=== PATIENT | female | born 1950 | race Caucasian/White ===

== ENCOUNTER → 2020-05-25 | Outpatient (CLI) | payer MEDICARE ==
--- NOTE | 2020-05-25 20:24 | CT ---
EXAMINATION TYPE: CT brain w con DATE OF EXAM: 05/25/2020 COMPARISON: None HISTORY: Vascular dementia w/o behavior disturbance. Pt c/o memory issues CT DLP: 1150.5 mGycm Automated exposure control for dose reduction was used. CONTRAST: CT scan of the head is performed with IV Contrast, patient injected with 80 mL of Isovue 300. FINDINGS: There is no abnormal enhancing mass or midline shift identified. Moderate diffuse volume loss. 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 Patchy white matter hypodensities likely sequela of chronic micro vascular ischemic change. The ventricles and sulci are within normal limits in size. The globes are grossly symmetric. The mastoid air cells are clear. The visualized sinuses are clear. IMPRESSION: 1. Moderate diffuse volume loss. Patchy white matter hypodensities likely sequela of chronic microvas cular ischemic change. 2. No enhancing mass or midline shift.
== END | disposition home or self-care (01) ==
LOC: RADCTMAIN 14:27
PROVIDERS: ATTEND Internal Medicine
DX: G93.89 Other specified disorders of brain (principal); R90.89 Other abnormal findings on diagnostic imaging of central nervous system; F01.50 Vascular dementia, unspecified severity, without behavioral disturbance, psychotic disturbance, mood disturbance, and anxiety
CPT/HCPCS: 82565; 84520; 70460; 36415; Q9967

== ENCOUNTER → 2020-06-15 | Outpatient (CLI) | payer MEDICARE ==
--- NOTE | 2020-06-15 15:53 | US ---
EXAMINATION TYPE: US kidneys/renal and bladder DATE OF EXAM: 06/15/2020 COMPARISON: NONE CLINICAL HISTORY: R94.4 ABN RENAL FUNCTION TEST. EXAM MEASUREMENTS: Right Kidney: 7.8 x 3.9 x 4.1 cm Left Kidney: 8.2 x 4.2 x 4.4 cm Right Kidney: small in size, no hydronephrosis or masses seen Left Kidney: small in size, no hydronephrosis or masses seen Bladder: wnl Bilateral Jets seen: yes Increased echogenicity of the kidneys bilaterally. IMPRESSION: No hydronephrosis or nephrolithiasis. Kidneys somewhat diminutive in size with increased cortical ech ogenicity which could be associated with chronic medical renal disease
== END | disposition home or self-care (01) ==
LOC: RADUSWWP 06-03 14:53
PROVIDERS: ATTEND Internal Medicine
DX: R93.421 Abnormal radiologic findings on diagnostic imaging of right kidney (principal); R93.422 Abnormal radiologic findings on diagnostic imaging of left kidney; R94.4 Abnormal results of kidney function studies
CPT/HCPCS: 76770

== ENCOUNTER 2021-07-17 21:57 | Emergency (ER) | payer MEDICARE ==
[2021-07-17 22:04] VITALS: BP 159/81; PULSE 72; RESP 18; TEMP 98
--- NOTE | 2021-07-17 22:26 | ED ---
Fall HPI - General Chief Complaint: Fall Stated Complaint: Fall about 8 steps, no thinners Time Seen by Provider: 07/17/21 22:07 Source: patient, RN notes reviewed, old records reviewed Mode of arrival: wheelchair - History of Present Illness Initial Comments: This is a 71-year-old female to the emergency department for evaluation, fall while walking on the stairs she believes she fell about 8 steps. Patient is amateur after the fall. Severe right wrist pain with deformity. No other injuries noted. 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 Fall Witnessed: yes, by family Place Fall Occurred: home Loss of Consciousness: none Prolonged Down Time?: no Symptoms Prior to Fall: none Location - Extremities: Right: Forearm, Hand Severity: severe Severity scale (1-10): 8 Quality: sharp Context: tripped/slipped Associated Symptoms: denies - Related Data Home Medications Medication Instructions Recorded Confirmed Atorvastatin Calcium [Lipitor] 20 mg PO DAILY 07/17/21 07/17/21 Donepezil HCl [Aricept] 10 mg PO DAILY 07/17/21 07/17/21 Allergies Allergy/AdvReac Type Severity Reaction Status Date / Time No Known Allergies Allergy Verified 07/17/21 23:18 Review of Systems ROS Statement: Those systems with pertinent positive or pertinent negative responses have been documented in the HPI. ROS Other: All systems not noted in ROS Statement are negative. Past Medical History Past Medical History: Diabetes Mellitus History of Any Multi-Drug Resistant Organisms: None Reported Past Surgical History: Cholecystectomy Past Psychological History: No Psychological Hx Reported Smoking Status: Never smoker Past Alcohol Use History: None Reported Past Drug Use History: None Reported General Exam General appearance: alert, in no apparent distress Head exam: Present: atraumatic, normocephalic, normal inspection Eye exam: Present: normal appearance, PERRL, EOMI. Absent: scleral icterus, conjunctival injection, periorbital swelling ENT exam: Present: normal exam, mucous membranes moist Neck exam: Present: normal inspection. Absent: tenderness, meningismus, lymphadenopathy Respiratory exam: Present: normal lung sounds bilaterally. Absent: respiratory distress, wheezes, rales, rhonchi, stridor Cardiovascular Exam: Present: regular rate, normal rhythm, normal heart sounds. Absent: systolic murmur, diastolic murmur, rubs, gallop, clicks GI/Abdominal exam: Present: soft, normal bowel sounds. Absent: distended, tenderness, guarding, rebound, rigid Extremities exam: Present: normal inspection, full ROM, normal capillary refill, other (Right wrist swelling and pain). Absent: tenderness, pedal edema, joint swelling, calf tenderness Back exam: Present: normal inspection Neurological exam: Present: alert, oriented X3, CN II-XII intact Psychiatric exam: Present: normal affect, normal mood Skin exam: Present: warm, dry, intact, normal color. Absent: rash Course Vital Signs 07/17/21 22:00 Temperature 98.0 F Pulse Rate 72 Respiratory 18 Rate Blood Pressure 159/81 O2 Sat by Pulse 99 Oximetry - Reevaluation(s) Reevaluation #1: Medical record is reviewed Patient symptoms are significantly improved here in the emergency department Patient informed results and questions answered Procedures - Orthopedic Fracture Reduction Fracture #1 Consent Obtained: verbal consent Side: right Fracture Reduction Location: radius, ulna Analgesia: hematoma block Technique: direct manipulation, traction/counter-traction Post Reduction X-rays Demonstrate: anatomical reduction Post-Reduction Neuro Exam: intact Post-Reduction Vascular Exam: intact Splint Applied: Yes Patient Tolerated Procedure: well Medical Decision Making - Medical Decision Making 71 female to the ER for evaluation patient presents today status post fall. This is reduced here in the ER without complication. Patient can be discharged home - Radiology Data Radiology results: report reviewed (CT brain C-spine chest x-ray are negative for traumatic injury X-ray right wrist and post reduction x-ray right wrist s hows improvement), image reviewed Disposition Clinical Impression: Fall, Fracture of right distal radius Disposition: HOME SELF-CARE Condition: Good Instructions (If sedation given, give patient instructions): Wrist Fracture in Adults (ED) Is patient prescribed a controlled substance at d/c from ED?: No Referrals: Shahid Ramos MD [Primary Care Provider] - 1-2 days Emelyn Sanchez DO [Doctor of Osteopathic Medicine] - 1-2 days
[2021-07-17] MEDS ORDERED: LIDOCAINE 1% INJ 10MG/ML (20 ML MDV) SQ ONE (22:38)
--- NOTE | 2021-07-17 23:01 | XR ---
EXAMINATION TYPE: XR wrist complete RT DATE OF EXAM: 07/17/2021 COMPARISON: NONE HISTORY: Fall. Pain TECHNIQUE: 4 views FINDINGS: There is impacted transverse acute fracture of the distal radial metaphysis. This is 1 cm f rom the wrist joint. There is no dislocation. Carpal bones are intact. Metacarpals are intact. There is 5 mm posterior displacement of the distal radius fragment on the lateral view. There is probably u lnar styloid process nondisplaced fracture. IMPRESSION: Impacted and displaced fracture distal radius. No dislocation.
--- NOTE | 2021-07-17 23:03 | XR ---
EXAMINATION TYPE: XR chest 1V DATE OF EXAM: 07/17/2021 COMPARISON: NONE HISTORY: Fall. Pain TECHNIQUE: Single view FINDINGS: Heart and mediastinum are normal. Lungs are clear. Diaphragm is normal. Bony thorax is inta ct. There is some pleural thickening at the lung apices. IMPRESSION: Mild apical pleural and pulmonary scarring. No definite acute lung disease. Normal heart.
--- NOTE | 2021-07-17 23:08 | CT ---
EXAMINATION TYPE: CT brain juan carlos sihrley con DATE OF EXAM: 07/17/2021 COMPARISON: 05/25/2020 CT brain HISTORY: Fall CT DLP: 1240.9 mGycm Automated exposure control for dose reduction was used. There is cerebral atrophy. There is no mass effect nor midline shift. There is no sign of intracrania l hemorrhage. Calvarium is intact. The skull base is intact. There is normal aeration of the mastoid sinuses. Cervical vertebra have normal alignment. Disc spaces are fairly normal. There is some mild degenerati ve disc space narrowing at C5-6. Facet joints are intact. Prevertebral soft tissues are intact sella turcica appears normal. IMPRESSION: Mild cerebral atrophy. No acute intracranial abnormality. Mild degenerative disc changes at C5-6. No fracture. Brain unchanged compared to old exam.
--- NOTE | 2021-07-17 23:31 | XR ---
EXAMINATION TYPE: XR wrist limited RT DATE OF EXAM: 07/17/2021 COMPARISON: 07/17/2021 HISTORY: Post reduction TECHNIQUE: 2 views FINDINGS: There is good anatomic reduction of the fracture distal radius. There is good apposition an d alignment of the fragments. Carpal bones are intact. Metacarpals are intact. IMPRESSION: Good anatomic reduction of the radius fracture.
== END 2021-07-18 00:01 | disposition home or self-care (01) ==
LOC: EC 21:57
DX: S52.501A Unspecified fracture of the lower end of right radius, initial encounter for closed fracture (principal); E11.9 Type 2 diabetes mellitus without complications; Z79.899 Other long term (current) drug therapy; W10.8XXA Fall (on) (from) other stairs and steps, initial encounter; Y92.009 Unspecified place in unspecified non-institutional (private) residence as the place of occurrence of the external cause
CPT/HCPCS: 73100; 73110; 71045; 72125; 70450; 25605; 99284; J2001

== ENCOUNTER → 2021-10-11 | Outpatient (CLI) | payer MEDICARE ==
[~2021-10-11] MED LIST: DOBUTamine DRIP for NUC MED 500 MG in DEXTROSE/WATER 1 250ML.BAG IV PRN
--- NOTE | 2021-10-11 09:15 | US ---
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 EXAM MEASUREMENTS: RIGHT: Peak Systolic Velocity (PSV) cm/sec ----- Right CCA: 76.4 ----- Right ICA: 133.2 ----- Right ECA: 91.0 ICA/CCA ratio: 1.7 RIGHT: End Diastole cm/sec ----- Right CCA: 24.1 ----- Right ICA: 28.8 ----- Right ECA: 14.0 LEFT: Peak Systolic Velocity (PSV) cm/sec ----- Left CCA: 85.2 ----- Left ICA: 99.7 ----- Left ECA: 98.3 ICA/CCA ratio: 1.2 LEFT: End Diastole cm/sec ----- Left CCA: 27.0 ----- Left ICA: 32.9 ----- Left ECA: 19.8 VERTEBRALS (direction of flow): Right Vertebral: Antegrade Left Vertebral: Antegrade Rhythm: Normal Right hypoechoic thyroid nodule seen, measuring 1.5 x 1.3 x 1.3cm Mild atherosclerotic IMPRESSION: No evidence for hemodynamically significant stenosis. Criteria for Assigning % of Stenosis / Diameter reduction (Estimation based on the indirect measurements of the internal carotid artery velocities (ICA PSV). 1. Normal (no stenosis)=ICA PSV < 125 cm/s: ratio < 2.0: ICA EDV<40 cm/s. 2. Less than 50% stenosis=ICA PSV < 125 cm/s: ratio < 2.0: ICA EDV<40 cm/s. 3. 50 to 69% stenosis=ICA PSV of 125 to 230 cm/s: ration 2.0 ? 4.0: ICA EDV 40-100 cm/s. 4. Greater than 70% stenosis to near occlusion= ICA PSV > 230 cm/s: ratio > 4.0: ICA EDV > 100 cm/s. 5. Near occlusion= ICA PSV velocities may be low or undetectable: variable ratio and ICA EDV. 6. Total occlusion=unable to detect flow.
== END | disposition home or self-care (01) ==
LOC: RADUSWWP 08:27
PROVIDERS: ATTEND Internal Medicine
DX: I21.19 ST elevation (STEMI) myocardial infarction involving other coronary artery of inferior wall (principal)
CPT/HCPCS: 93880

== ENCOUNTER → 2021-12-06 | Outpatient (CLI) | payer MEDICARE ==
--- NOTE | 2021-12-06 11:06 | BD ---
EXAMINATION TYPE: Axial Bone Density DATE OF EXAM: 12/06/2021 COMPARISON: NONE CLINICAL HISTORY: 71 years year old Female. ICD-10 CODE: Z13.820 OSTEOPOROSIS Height: 63in Weight: 142 FRAX RISK QUESTIONS: Secondary Osteoporosis: 3. Menopause before 45: 56 RISK FACTORS HISTORY OF: Active: YES Diet low in dairy products/other sources of calcium: YES Postmenopausal woman: 56 MEDICATIONS: EXAM MEASUREMENTS: Bone mineral densitometry was performed using the [employer]. Bone mineral density as measured about the Lumbar spine is: ----- L1-L4(G/cm2): 0.735 T Score Values are as follows: ----- L1: -3.2 ----- L2: -4.0 ----- L3: -4.1 ----- L4: -3.7 ----- L1-L4: -3.7 Bone mineral density BASELINE Bone mineral density about the R hip (g/cm2): 0.656 Bone mineral density about the L hip (g/cm2): 0.674 T Score values are as follows: -----R Neck: -2.7 -----L Neck: -2.6 -----R Total: -3.0 -----L Total: -2.8 Bone mineral density BASELINE FRAX%s: The graph provided illustrates a 17.2% chance for a major osteoporotic fx and a 5.2% chance f or the hips probability for fx in 10 years time. IMPRESSION: Osteoporosis (T Score less than -2.5). There is increased fracture risk and therapy is usually indicated based on age. Re-Screen 1-2 years. NOTE: T-SCORE=SD OF THE YOUNG ADULT MEAN.
--- NOTE | 2021-12-07 11:12 | MM ---
Reason for exam: screening (asymptomatic). Last mammogram was performed 16 years ago. History: Patient is postmenopausal. Took estrogen for 1 year. Took progesterone for 1 year. Physical Findings: A clinical breast exam by your physician is recommended on an annual basis and results should be correlated with mammographic findings. MG 3D Screening Mammo W/Cad Bilateral CC and MLO view(s) were taken. Prior study comparison: December 09, 2005, bilateral screening mammogram w/CAD. The breast tissue is heterogeneously dense. This may lower the sensitivity of mammography. Benign appearing calcifications in the right breast. There are indeterminate calcifications in the left upper quadrant. ASSESSMENT: Incomplete: need additional imaging evaluation, BI-RAD 0 RECOMMENDATION: Special view mammogram of the left breast. [facility] will attempt to contact patient to return for supplemental views.
== END | disposition home or self-care (01) ==
LOC: RADMAMWWP 08:15
PROVIDERS: ATTEND Internal Medicine
DX: Z12.31 Encounter for screening mammogram for malignant neoplasm of breast (principal); M81.0 Age-related osteoporosis without current pathological fracture; Z78.0 Asymptomatic menopausal state
CPT/HCPCS: 77063; 77067; 77080

== ENCOUNTER → 2021-12-09 | Outpatient (CLI) | payer MEDICARE ==
--- NOTE | 2021-12-09 09:35 | MM ---
Reason for exam: additional evaluation requested from abnormal screening. Last mammogram was performed less than 1 month ago. History: Patient is postmenopausal. Took estrogen for 1 year. Took progesterone for 1 year. Physical Findings: A clinical breast exam by your physician is recommended on an annual basis and results should be correlated with mammographic findings. MG 3D Work Up W/Cad LT LM with magnification and LM view(s) were taken of the left breast. Prior study comparison: December 06, 2021, bilateral MG 3d screening mammo w/cad. December 09, 2005, bilateral screening mammogram w/CAD. The breast tissue is heterogeneously dense. This may lower the sensitivity of mammography. Questioned superior calcifications area not well demonstrated on magnification views, possible faint vascular calcifications. 6 month follow up. Results were given to the patient verbally at the time of the exam. ASSESSMENT: Probably benign, BI-RAD 3 RECOMMENDATION: Follow-up diagnostic mammogram of the left breast in 6 months.
== END | disposition home or self-care (01) ==
LOC: RADMAMWWP 08:43
PROVIDERS: ATTEND Internal Medicine
DX: R92.8 Other abnormal and inconclusive findings on diagnostic imaging of breast (principal); Z78.0 Asymptomatic menopausal state
CPT/HCPCS: 77065; G0279; 77061

== ENCOUNTER 2021-12-30 09:56 | Day surgery (SDC) | payer MEDICARE ==
[2021-12-29 10:38] VITALS: BMI 21.6
[~2021-12-30 09:56] MED LIST changes: -DOBUTamine DRIP for NUC MED 500 MG in DEXTROSE/WATER 1 250ML.BAG IV PRN; +LACTATED RINGERS 1,000 ML IV SCH
[2021-12-30 11:02] VITALS: TEMP 96.8
--- NOTE | 2021-12-30 11:59 | P.GSHP ---
History of Present Illness H&P Date: 12/30/21 Chief Complaint: Screening colonoscopy Is a 71-year-old female who presents today for screening colonoscopy. Patient denies a significant GI complaints Past Medical History Past Medical History: Dementia, Hyperlipidemia, Memory Impairment History of Any Multi-Drug Resistant Organisms: None Reported Past Surgical History: Cholecystectomy Past Anesthesia/Blood Transfusion Reactions: No Reported Reaction Smoking Status: Former smoker - Past Family History Mother Family Medical History: Cancer Medications and Allergies Home Medications Medication Instructions Recorded Confirmed Type Atorvastatin Calcium [Lipitor] 20 mg PO DAILY 07/17/21 12/30/21 History Donepezil HCl [Aricept] 10 mg PO DAILY 07/17/21 12/30/21 History Allergies Allergy/AdvReac Type Severity Reaction Status Date / Time No Known Allergies Allergy Verified 12/30/21 10:54 Surgical - Exam Vital Signs Temp Pulse Resp BP Pulse Ox 96.8 F L 87 18 199/97 97 12/30/21 11:00 12/30/21 11:00 12/30/21 11:00 12/30/21 11:00 12/30/21 11:00 - General well developed, well nourished, no distress - Eyes PERRL - ENT normal pinna - Neck no masses - Respiratory normal expansion - Cardiovascular Rhythm: regular - Abdomen Abdomen: soft, non tender Assessment and Plan Assessment: We will perform screening colonoscopy
[2021-12-30] MEDS ORDERED: PROPOFOL 10 MG/ML 20 ML VIAL IV ONE (12:02)
--- NOTE | 2021-12-30 12:17 | P.OP ---
Date of Procedure: 12/30/21 Preoperative Diagnosis: Screening colonoscopy Postoperative Diagnosis: Diverticulosis Procedure(s) Performed: Colonoscopy Anesthesia: MAC Surgeon: Eben Sharpe Pathology: none sent Condition: stable Disposition: PACU Description of Procedure: The patient's placed on the endoscopy table lateral position. He received IV sedation. Digital rectal exam was performed. Possible colonoscope was then placed patient anus passed rotator entire colon. Ileocecal valve was visualized. Cecum, ascending and transverse colon appeared normal. In the descending and sigmoid colon there is mild diverticular changes. Scope was then brought back the rectum and this appeared normal. Scope withdrawn for patient.
[2021-12-30 12:35] VITALS: BP 133/64; PULSE 65; RESP 18
== END 2021-12-30 13:40 | disposition home or self-care (01) ==
LOC: ORWHC2ENDO 09:56
PROVIDERS: ATTEND Surgery
DX: Z12.11 Encounter for screening for malignant neoplasm of colon (principal); K57.90 Diverticulosis of intestine, part unspecified, without perforation or abscess without bleeding; E78.5 Hyperlipidemia, unspecified; F03.90 Unspecified dementia, unspecified severity, without behavioral disturbance, psychotic disturbance, mood disturbance, and anxiety; Z87.891 Personal history of nicotine dependence; Z90.49 Acquired absence of other specified parts of digestive tract
CPT/HCPCS: 45378; J2704

== ENCOUNTER → 2022-03-08 | Outpatient (CLI) | payer MEDICARE ==
[~2022-03-08] MED LIST changes: -LACTATED RINGERS 1,000 ML IV SCH; +REGADENOSON 0.4 MG/5 ML SYRINGE IV ONE
--- NOTE | 2022-03-08 11:46 | CA ---
Lexiscan Nuclear Stress Test Report Name: Ingris Blackwood Exam Date: 03/08/2022 09:39 Exam Location: [facility] Stress Ht (in): 62 Wt (lb): 159 BSA: 1.73 Ordering Phys: Shahid Ramos MD Referring Phys: Shahid Ramos MD Technologist: Avtar Larios Age: 72 Gender: F : 1950 Procedure CPT: Indications: I21.19 Inferior myocardaial infarction ICD-10 Codes: Patient History: Question inferior wall PR Medications: Meds past 24 hrs: Pretest Chest Pain: STRESS TEST Lexiscan Protocol Exercise Duration (min:sec): 02:[address] Depressions (mm): Angina Score: Montano Score: Resting HR (bpm): 62 Peak HR (bpm): 94 Resting BP (mmHg): 150 / 90 Peak BP (mmHg): 160 / 88 MPHR: 149 Target HR: 127 % MPHR: 63 METS: 1.0 Total Dose: Peak Dose: Atropine: Double Product: 15135 BP Response: Stress Termination: Infusion complete Stress Symptoms: No chest pain or symptoms Stress Summary: ECG ANALYSIS Resting ECG: Normal sinus rhythm normal axis normal intervals Stress ECG: Non-diagnostic ST segment depression with Lexiscan infusion with frequent PVCs CONCLUSIONS Negative stress test by EKG criteria Cardiolite portion of the stress test will be reported separately Dr. Robert Belcher MD (Electronically Signed) Final Date: 08 March 2022 11:45
--- NOTE | 2022-03-08 11:51 | NM ---
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 The patient received 0.4mg Lexiscan, 25.2 mCi Tc 99m Sestamibi - Stress images obtained [address] injection FINDINGS: Review of stress and rest SPECT images demonstrates no distinct perfusion abnormality. Gated analysi s shows normal wall motion with an estimated left ventricular ejection fraction of 62 %. IMPRESSION: No scintigraphic evidence for reversible ischemia.
== END | disposition home or self-care (01) ==
LOC: RADNMMAIN 07:43
PROVIDERS: ATTEND Internal Medicine
DX: I21.19 ST elevation (STEMI) myocardial infarction involving other coronary artery of inferior wall (principal)
CPT/HCPCS: 93017; 78452; A9500

== ENCOUNTER → 2022-12-07 | Outpatient (CLI) | payer MEDICARE ==
--- NOTE | 2022-12-08 19:15 | MM ---
Reason for Exam: Screening (asymptomatic). Last screening mammogram was performed 12 month(s) ago. Patient History: Menarche at age 13. First Full-Term at age 18. Postmenopausal. Patient used Estrogen for 1 year. Patient used Progesterone for 1 year. Risk Values: Katelynn 5 year model risk: 1.3%. NCI Lifetime model risk: 3.5%. Prior Study Comparison: 12/09/2005 Bilateral Screening Mammogram, [facility]. 12/06/2021 Bilateral Screening Mammogram, [facility]. 12/09/2021 Left Diagnostic Mammogram, [facility]. Tissue Density: There are scattered fibroglandular densities. Findings: Analyzed By CAD. Subtle asymmetric density central left CC view at middle depth is more defined and incompletely disperses on 3-D images. Further evaluation is recommended. Otherwise, no significant change. Overall Assessment: Incomplete: need additional imaging evaluation, BI-RAD 0 Management: Special View Mammogram of the left breast. Additional views to include spot 3-D CC, 3-D CC rolled lateral, and 3-D lateral views. Targeted left breast ultrasound if any persisting abnormality. [facility] will attempt to contact patient to return for supplemental views and ultrasound if indicated. Electronically signed and approved by: Diamond Roldan M.D. Radiologist
== END | disposition home or self-care (01) ==
LOC: RADMAMWWP 10:39
PROVIDERS: ATTEND Internal Medicine
DX: Z12.31 Encounter for screening mammogram for malignant neoplasm of breast (principal); Z78.0 Asymptomatic menopausal state
CPT/HCPCS: 77063; 77067

== ENCOUNTER → 2022-12-15 | Outpatient (CLI) | payer MEDICARE ==
--- NOTE | 2022-12-15 10:42 | MM ---
Reason for Exam: Additional evaluation requested from abnormal screening. Last screening mammogram was performed less than 1 month ago. Patient History: Menarche at age 13. First Full-Term at age 18. Postmenopausal. Patient used Estrogen for 1 year. Patient used Progesterone for 1 year. Risk Values: Katelynn 5 year model risk: 1.3%. NCI Lifetime model risk: 3.5%. Prior Study Comparison: 12/06/2021 Bilateral Screening Mammogram, [facility]. 12/09/2021 Left Diagnostic Mammogram, [facility]. 12/07/2022 Bilateral MG 3D screening mammo w/cad, [facility]. Tissue Density: Left: There are scattered fibroglandular densities. Findings: Analyzed By CAD. The questioned area of central asymmetric density on the CC view, middle depth did not persist on 3 images. We do note the 3:00 centrally located less than 3 mm circumscribed nodule. This also does not seem to persist on the spot 3-D CC view but is noted on the lateral view. Precautionary 6 month follow-up recommended. Overall Assessment: Probably benign, BI-RAD 3 Management: Diagnostic Mammogram of the left breast in 6 months. Results were given to the patient verbally at the time of exam. Patient should continue monthly self-breast exams. A clinical breast exam by your physician is recommended on an annual basis. This exam should not preclude additional follow-up of suspicious palpable abnormalities. Note on Katelynn scores and lifetime risk: 1. A Katelynn score greater than 3% is considered moderate risk. If this is the case, consider specialist referral to assess eligibility for a risk reducing agent. 2. If overall lifetime risk for the development of breast cancer is 20% or higher, the patient may qualify for future screening with alternating mammogram and breast MRI. Electronically signed and approved by: Diamond Roldan M.D. Radiologist
== END | disposition home or self-care (01) ==
LOC: RADMAMWWP 10:13
PROVIDERS: ATTEND Internal Medicine
DX: R92.8 Other abnormal and inconclusive findings on diagnostic imaging of breast (principal); Z78.0 Asymptomatic menopausal state
CPT/HCPCS: 77061; 77065

== ENCOUNTER → 2024-02-07 | Outpatient (CLI) | payer MEDICARE ==
--- NOTE | 2024-02-07 10:38 | MM ---
Reason for Exam: Additional evaluation requested from prior study. Last mammogram was performed 1 year(s) and 2 month(s) ago. Patient History: Menarche at age 13. First Full-Term at age 18. Postmenopausal. Patient used Estrogen for 1 year. Patient used Progesterone for 1 year. Risk Values: Katelynn 5 year model risk: 1.3%. NCI Lifetime model risk: 3.3%. Tissue Density: The breasts are heterogeneously dense, which may obscure small masses. Findings: Analyzed By CAD. The pattern is symmetrical. There is persistence of a small rounded density lower left breast. No change. Previous density within the mid to medial left breast not evident on current exam. Benign calcifications within the right breast. No suspicious groups of microcalcifications, spiculated or lobular masses, architectural distortion or other secondary signs of malignancy are mammographically apparent. Overall Assessment: Benign, BI-RAD 2 Management: Screening Mammogram of both breasts in 1 year. A negative mammogram report should not preclude additional follow up of suspicious palpable abnormalities. Patient should continue monthly self breast exam. A clinical breast exam by your physician is recommended on an annual basis and results should be correlated with mammographic findings. Note on Katelynn scores and lifetime risk: 1. A Katelynn score greater than 3% is considered moderate risk. If this is the case, consider specialist referral to assess eligibility for a risk reducing agent. 2. If overall lifetime risk for the development of breast cancer is 20% or higher, the patient may qualify for future screening with alternating mammogram and breast MRI. Electronically signed and approved by: Jesús Arreola D.O. Radiologis
== END | disposition home or self-care (01) ==
LOC: RADMAMWWP 10:05
PROVIDERS: ATTEND Internal Medicine
DX: R92.8 Other abnormal and inconclusive findings on diagnostic imaging of breast (principal); R92.333 Mammographic heterogeneous density, bilateral breasts; Z78.0 Asymptomatic menopausal state
CPT/HCPCS: 77062; 77066

== ENCOUNTER 2024-07-10 12:35 | Emergency (ER) | payer MEDICARE ==
--- NOTE | 2024-07-10 13:44 | ED ---
Abdominal Pain HPI - General Chief Complaint: Abdominal Pain Stated Complaint: appendix pain Time Seen by Provider: 07/10/24 13:35 Source: patient, family, RN notes reviewed Mode of arrival: wheelchair Limitations: no limitations - History of Present Illness Initial Comments: This is a 74-year-old female who presents to the emergency department for abdom inal pain. Patient reports right lower quadrant abdominal pain starting about an hour prior to arrival. Denies any radiation of pain. denies any nausea/vomiting or changes in bowel/bladder habits. denies any similar pain in the past. MD Complaint: abdominal pain - Related Data Home Medications Medication Instructions Recorded Confirmed Atorvastatin Calcium [Lipitor] 20 mg PO DAILY 07/17/21 12/30/21 Donepezil HCl [Aricept] 10 mg PO DAILY 07/17/21 12/30/21 Allergies Allergy/AdvReac Type Severity Reaction Status Date / Time No Known Allergies Allergy Verified 07/10/24 12:42 Review of Systems ROS Statement: Those systems with pertinent positive or pertinent negative responses have been documented in the HPI. ROS Other: All systems not noted in ROS Statement are negative. Past Medical History Past Medical History: Diabetes Mellitus History of Any Multi-Drug Resistant Organisms: None Reported Past Surgical History: Cholecystectomy Past Psychological History: No Psychological Hx Reported Smoking Status: Never smoker Past Alcohol Use History: None Reported Past Drug Use History: None Reported General Exam Limitations: no limitations General appearance: alert, in no apparent distress Head exam: Present: atraumatic, normocephalic, normal inspection Respiratory exam: Present: normal lung sounds bilaterally. Absent: respiratory distress, wheezes, rales, rhonchi, stridor Cardiovascular Exam: Present: regular rate, normal rhythm, normal heart sounds. Absent: systolic murmur, diastolic murmur, rubs, gallop, clicks GI/Abdominal exam: Present: soft, tenderness (Right lower quadrant), normal bowel sounds. Absent: distended, guarding, rebound, rigid Neurological exam: Present: alert, oriented X3, CN II-XII intact Psychiatric exam: Present: normal affect, normal mood Skin exam: Present: warm, dry, intact, normal color. Absent: rash Course Vital Signs 07/10/24 12:42 Temperature 98.2 F Pulse Rate 82 Respiratory 20 Rate Blood Pressure 218/61 O2 Sat by Pulse 98 Oximetry Medical Decision Making - Medical Decision Making This is a 74-year-old female who presents emergency department for abdominal pain. Was pt. sent in by a medical professional or institution? @ -No Did you speak to anyone other than the patient for history? @ -No Did you review nursing and triage notes? @ -Yes, and I agree, it is accurate with regards to the patient's symptoms. Were old charts reviewed? @ -No Differential Diagnosis? @ -Differential Abdominal Pain Women: Appendicitis, Cholecystitis, diverticulosis, ischemic bowel, pancreatitis, hepatitis, UTI, gastroenteritis, AAA, incarcerated hernia, bowel obstruction, constipation, inflammatory bowel, hepatitis, peptic ulcer disease, splenic infarction, perforated viscus, vulvitis, ovarian torsion, PID, kidney stone, placenta abruption, this is not meant to be an all-inclusive list EKG interpreted by me (3pts min.)? @ -[none] EKG interpreted by me demonstrating the following: X-rays interpreted by me (1pt min.)? @ -[none] CT interpreted by me (1pt min.)? @ -[none] U/S interpreted by me (1pt. min.)? @ -[none] What testing was considered but not performed? (CT, X-rays, U/S, labs)? Why? @ [CT, X-rays, U/S, labs? Why?] What meds were considered but not given? Why? @ -[none] Did you discuss the management of the patient with other professionals? @ -No Did you reconcile home meds? @ -No Was smoking cessation discussed for >3mins.? @ -No Was critical care preformed (if so, how long)? @ -No Were there social determinants of health that impacted care today? How? (Homelessness, low income, unemployed, alcoholism, drug addiction, transportation, low edu. Level, literacy, decrease access to med. care, fdc, rehab)? @ -No Was there de-escalation of care discussed even if they declined? (Discuss DNR or withdrawal of care, Hospice)? @ -No What co-morbidities impacted this encounter? (DM, HTN, Smoking, COPD, CAD, Cancer, CVA, Hep., AIDS, mental health diagnosis, sleep apnea, morbid obesity)? @ -[DM, HTN, Smoking, COPD, CAD, Cancer, CVA, Hep., AIDS, mental health diagnosis, sleep apnea, morbid obesity?] Was patient admitted / discharged? @ -[hospital course] Undiagnosed new problem with uncertain prognosis? @ -None Drug Therapy requiring intensive monitoring for toxicity (Heparin, Nitro, Insulin, Cardizem)? @ -None Were any procedures done? @ -None Diagnosis/symptom? @ -[default] Acute, or Chronic, or Acute on Chronic? @ -[default] Uncomplicated (without systemic symptoms) or Complicated (systemic symptoms)? @ -[default] Side effects of treatment? @ -[none] Exacerbation, Progression, or Severe Exacerbation] @ -Not applicable Poses a threat to life or bodily function? @ -[no] - Lab Data Result diagrams: 07/10/24 13:53 07/10/24 13:53 Lab Results 07/10/24 07/10/24 07/10/24 Range/Units 13:53 13:53 13:53 WBC 6.5 (3.8-10.6) k/uL RBC 4.32 (3.80-5.40) m/uL Hgb 12.3 (11.4-16.0) gm/dL Hct 38.5 (34.0-46.0) % MCV 89.1 (80.0-100.0) fL MCH 28.5 (25.0-35.0) pg MCHC 32.0 (31.0-37.0) g/dL RDW 13.5 (11.5-15.5) % Plt Count 307 (150-450) k/uL MPV 6.6 Neutrophils % 70 % Lymphocytes % 23 % Monocytes % 4 % Eosinophils % 2 % Basophils % 0 % Neutrophils # 4.5 (1.3-7.7) k/uL Lymphocytes # 1.5 (1.0-4.8) k/uL Monocytes # 0.3 (0-1.0) k/uL Eosinophils # 0.1 (0-0.7) k/uL Basophils # 0.0 (0-0.2) k/uL Sodium 146 H (137-145) mmol/L Potassium 4.2 (3.5-5.1) mmol/L Chloride 110 H (98-107) mmol/L Carbon Dioxide 25 (22-30) mmol/L Anion Gap 11 mmol/L BUN 30 H (7-17) mg/dL Creatinine 1.30 H (0.52-1.04) mg/dL Est GFR (CKD-EPI)AfAm 47 (>60 ml/min/1.73 sqM) Est GFR (CKD-EPI)NonAf 41 (>60 ml/min/1.73 sqM) Glucose 94 (74-99) mg/dL Plasma Lactic Acid Hubert 1.0 (0.7-2.0) mmol/L Calcium 9.7 (8.4-10.2) mg/dL Total Bilirubin 0.5 (0.2-1.3) mg/dL AST 16 (14-36) U/L ALT 10 (4-34) U/L Alkaline Phosphatase 146 H (38-126) U/L Total Protein 7.7 (6.3-8.2) g/dL Albumin 4.5 (3.5-5.0) g/dL Urine Color Urine Appearance (Clear) Urine pH (5.0-8.0) Ur Specific [place] (1.001-1.035) Urine Protein (Negative) Urine Glucose (UA) (Negative) Urine Ketones (Negative) Urine Blood (Negative) Urine Nitrite (Negative) Urine Bilirubin (Negative) Urine Urobilinogen (<2.0) mg/dL Ur Leukocyte Esterase (Negative) Urine RBC (0-5) /hpf Urine WBC (0-5) /hpf Ur Squamous Epith Cells (0-4) /hpf Amorphous Sediment (None) /hpf Urine Bacteria (None) /hpf Urine Mucus (None) /hpf 07/10/24 Range/Units 15:13 WBC (3.8-10.6) k/uL RBC (3.80-5.40) m/uL Hgb (11.4-16.0) gm/dL Hct (34.0-46.0) % MCV (80.0-100.0) fL MCH (25.0-35.0) pg MCHC (31.0-37.0) g/dL RDW (11.5-15.5) % Plt Count (150-450) k/uL MPV Neutrophils % % Lymphocytes % % Monocytes % % Eosinophils % % Basophils % % Neutrophils # (1.3-7.7) k/uL Lymphocytes # (1.0-4.8) k/uL Monocytes # (0-1.0) k/uL Eosinophils # (0-0.7) k/uL Basophils # (0-0.2) k/uL Sodium (137-145) mmol/L Potassium (3.5-5.1) mmol/L Chloride (98-107) mmol/L Carbon Dioxide (22-30) mmol/L Anion Gap mmol/L BUN (7-17) mg/dL Creatinine (0.52-1.04) mg/dL Est GFR (CKD-EPI)AfAm (>60 ml/min/1.73 sqM) Est GFR (CKD-EPI)NonAf (>60 ml/min/1.73 sqM) Glucose (74-99) mg/dL Plasma Lactic Acid Hubert (0.7-2.0) mmol/L Calcium (8.4-10.2) mg/dL Total Bilirubin (0.2-1.3) mg/dL AST (14-36) U/L ALT (4-34) U/L Alkaline Phosphatase (38-126) U/L Total Protein (6.3-8.2) g/dL Albumin (3.5-5.0) g/dL Urine Color Light Yellow Urine Appearance Cloudy H (Clear) Urine pH 5.0 (5.0-8.0) Ur Specific [place] 1.034 (1.001-1.035) Urine Protein Negative (Negative) Urine Glucose (UA) Negative (Negative) Urine Ketones Negative (Negative) Urine Blood Small H (Negative) Urine Nitrite Negative (Negative) Urine Bilirubin Negative (Negative) Urine Urobilinogen <2.0 (<2.0) mg/dL Ur Leukocyte Esterase Large H (Negative) Urine RBC 3 (0-5) /hpf Urine WBC 4 (0-5) /hpf Ur Squamous Epith Cells 24 H (0-4) /hpf Amorphous Sediment Rare H (None) /hpf Urine Bacteria Rare H (None) /hpf Urine Mucus Occasional H (None) /hpf - Radiology Data Radiology results: report reviewed, image reviewed Disposition Clinical Impression: Ovarian cyst, right Disposition: HOME SELF-CARE Instructions (If sedation given, give patient instructions): Ovarian Cyst (ED) Additional Instructions: Return to the emergency department with any new, worsening, or concerning symptoms. Take Tylenol as needed for pain relief. You can also try applying a heating pad. Follow up with your primary care provider in 1-2 days. Is patient prescribed a controlled substance at d/c from ED?: No Referrals: Shahid Ramos MD [Primary Care Provider] - 1-2 days Time of Disposition: 16:20
[2024-07-10 14:01] LABS: Basophils % (A) 0 %; Eosinophils # (A) 0.1 k/uL (0-0.7); Eosinophils % (A) 2 %; HCT 38.5 % (34.0-46.0); HGB 12.3 gm/dL (11.4-16.0); Lymphocytes # (A) 1.5 k/uL (1.0-4.8); Lymphocytes % (A) 23 %; MCH 28.5 pg (25.0-35.0); MCV 89.1 fL (80.0-100.0); Mean Platelet Volume 6.6; Monocytes # (A) 0.3 k/uL (0-1.0); Monocytes % (A) 4 %; Neutrophils # (A) 4.5 k/uL (1.3-7.7); Neutrophils % (A) 70 %; Platelet Count 307 k/uL (150-450); RBC 4.32 m/uL (3.80-5.40); RDW 13.5 % (11.5-15.5); WBC 6.5 k/uL (3.8-10.6)
[2024-07-10 14:17] LABS: ALT 10 U/L (4-34); AST 16 U/L (14-36); African American GFR (CKD) 47 (>60 ml/min/1.73 sqM); Albumin 4.5 g/dL (3.5-5.0); Alkaline Phosphatase 146 U/L (38-126); Anion Gap 11 mmol/L; Blood Urea Nitrogen 30 mg/dL (7-17); Calcium 9.7 mg/dL (8.4-10.2); Carbon Dioxide 25 mmol/L (22-30); Chloride 110 mmol/L (98-107); Glucose 94 mg/dL (74-99); Non-African American GFR(CKD) 41 (>60 ml/min/1.73 sqM); Potassium 4.2 mmol/L (3.5-5.1); Sodium 146 mmol/L (137-145); Total Bilirubin 0.5 mg/dL (0.2-1.3); Total Protein 7.7 g/dL (6.3-8.2)
[2024-07-10] MEDS: SODIUM CHLORIDE 0.9% 1,000 ML IV STA (14:33)
[2024-07-10] MEDS: MORPHINE SULFATE 4 MG/ML SYRINGE IVP STA (14:35)
--- NOTE | 2024-07-10 15:13 | CT ---
EXAMINATION TYPE: CT abdomen pelvis w con CT DLP: 808 mGycm, Automated exposure control for dose reduction was used. DATE OF EXAM: 07/10/2024 3:02 PM COMPARISON: No direct comparisons. CLINICAL INDICATION:Female, 74 years old with history of RLQ abdominal pain; RLQ pain. Denies n/v/d. Sx onset one hour ago TECHNIQUE: Standard CT of the abdomen and pelvis following the administration of 100 cc of Isovue 3 00 IV contrast material. Coronal and sagittal reformats were performed. FINDINGS: LOWER CHEST: Unremarkable ABDOMEN LIVER: Subcentimeter hypodense focus within the left hepatic lobe which is too small to characterize but likely represents a cyst. Suggested Prashanth lobe variant. GALLBLADDER AND BILE DUCTS: The gallbladder is surgically absent. No biliary ductal dilatation. PANCREAS: Unremarkable. SPLEEN: Unremarkable. ADRENAL GLANDS: Unremarkable. KIDNEYS AND URETERS: No evidence of hydronephrosis or renal calculus. The kidneys enhance symmetrical ly. Contrast is demonstrated within both collecting systems on the delayed phase. PELVIS BLADDER: Unremarkable REPRODUCTIVE: Unremarkable appearance of uterus. Right ovarian cystic 4.5 cm lesion. ABDOMEN & PELVIS STOMACH AND BOWEL: Small hiatal hernia, duodenum is unremarkable. Distal colonic diverticulosis witho ut evidence for acute diverticulitis. The appendix is within normal limits. No focal bowel wall thick ening or surrounding inflammatory changes. No evidence of bowel obstruction. PERITONEUM: No evidence of pneumoperitoneum or free fluid. VASCULATURE: Moderate atherosclerotic calcifications are present throughout the abdominal aorta and i ts branches. No evidence of aortic aneurysm. MUSCULOSKELETAL: No acute osseous abnormalities LYMPH NODES: No evidence for lymphadenopathy. SOFT TISSUE/ABDOMINAL WALL: Unremarkable IMPRESSION: 1. No acute intra-abdominal/pelvic process. 2. Colonic diverticulosis without evidence for acute diverticulitis. 3. Indeterminate right ovarian cyst 4.5 cm lesion. Recommend further evaluation with pelvic ultrasoun d. [facility], , 07/10/2024 3:10 PM
[2024-07-10 15:46] LABS: Amorphous Sediment,Urine Rare /hpf; Appearance,Urine Cloudy (Clear); Bacteria,Urine Rare /hpf; Bilirubin,Urine Negative (Negative); Blood,Urine Small (Negative); Color,Urine Light Yellow; Glucose,Urine (UA) Negative (Negative); Ketones,Urine Negative (Negative); Leukocyte Esterase,Urine Large (Negative); Mucus,Urine Occasional /hpf; Nitrite,Urine Negative (Negative); Protein,Urine Negative (Negative); RBC,Urine 3 /hpf (0-5); Specific Gravity,Urine 1.034 (1.001-1.035); Squamous Epithelial Cell,Urine 24 /hpf (0-4); Urobilinogen,Urine <2.0 mg/dL (<2.0); WBC,Urine 4 /hpf (0-5)
--- NOTE | 2024-07-10 16:14 | US ---
EXAMINATION TYPE: US transvaginal DATE OF EXAM: 07/10/2024 COMPARISON: NONE CLINICAL INDICATION: Female, 74 years old with history of Right sided pelvic pain, abnormal CT; Pain right ovarian cyst follow up to ct scan. TECHNIQUE: Transvaginal (TV). Doppler imaging: Not performed. FINDINGS: EXAM MEASUREMENTS: Uterus: 6.0 x 3.4 x 4.3 cm Endometrial Stripe: Obscured due to fibroid change Right Ovary: 5.3 x 5.0 x 4.8 cm 1. Uterus: Heterogenous area seen 2.6 x 2.6 x 2.9 cm suggestive of fibroid. anteverted. 2. Endometrium: Obscured 3. Right Ovary: Cystic area seen 4.0 x 4.6 x 3.8 cm. 4. Left Ovary: Obscured by overlying bowel gas Spectral, color and waveform doppler imaging shows good arterial and venous flow within the right o vary; there is no evidence for ovarian torsion. 5. Bilateral Adnexa: wnl 6. Posterior cul-de-sac: wnl IMPRESSION: 1. Appropriate arterial and venous spectral waveforms to the right ovary. 2. Fibroid change. 3. Right ovarian cyst measuring 4.6 cm. [facility], , 07/10/2024 4:12 PM
[2024-07-10] MEDS: ACET/COD 300 MG/30 MG STARTER PACK 6 TAB BTL PO STA (17:00)
[2024-07-10 17:05] VITALS: BP 146/77; PULSE 59; RESP 16; TEMP 97.6
== END 2024-07-10 17:05 | disposition home or self-care (01) ==
LOC: EC 12:35
DX: N83.201 Unspecified ovarian cyst, right side (principal); K57.30 Diverticulosis of large intestine without perforation or abscess without bleeding; I10 Essential (primary) hypertension; J44.9 Chronic obstructive pulmonary disease, unspecified; I25.10 Atherosclerotic heart disease of native coronary artery without angina pectoris; E11.9 Type 2 diabetes mellitus without complications; G47.30 Sleep apnea, unspecified; E66.01 Morbid (severe) obesity due to excess calories; F17.200 Nicotine dependence, unspecified, uncomplicated; Z90.49 Acquired absence of other specified parts of digestive tract; Z68.22 Body mass index [BMI] 22.0-22.9, adult; Z79.899 Other long term (current) drug therapy
CPT/HCPCS: 36415; 80053; 83605; 85025; 81001; 93976; 76830; 74177; 99284; 96374; 96361; J2270; Q9967

== ENCOUNTER → 2024-12-09 | Outpatient (CLI) | payer MEDICARE ==
--- NOTE | 2024-12-09 13:38 | BD ---
EXAMINATION TYPE: Axial Bone Density DATE OF EXAM: 12/09/2024 CLINICAL HISTORY: 74 years old Female. ICD-10 CODE: M810 AGE RELATED OSTEO , Additional History: Height: 62 Weight: 136 FRAX RISK QUESTIONS: History of Fracture in Adulthood: yes Secondary Osteoporosis: RISK FACTORS HISTORY OF: History of Wrist Fracture: yes, right When: 2020 MEDICATIONS: EXAM MEASUREMENTS: Bone mineral densitometry was performed using the its learning System. Bone mineral density as measured about the Lumbar spine is: ----- L1-L4(G/cm2): 0.779 T Score Values are as follows: ----- L1: -2.4 ----- L2: -3.5 ----- L3: -3.7 ----- L4: -3.7 ----- L1-L4: -3.3 Z Score Values are as follows: ----- L1: -0.6 ----- L2: -1.7 ----- L3: -1.8 ----- L4: -1.8 ----- L1-L4: -1.5 Bone mineral density has: Increased 6.0% since study of: 12-06-21 Bone mineral density about the R hip (g/cm2): 0.624 Bone mineral density about the L hip (g/cm2): 0.665 T Score values are as follows: -----R Neck: -3.0 -----L Neck: -2.3 -----R Total: -3.0 -----L Total: -2.7 Z Score values are as follows: -----R Neck: -1.0 -----L Neck: -0.4 -----R Total: -1.3 -----L Total: -1.0 Bone mineral density has: Increased 0.2% since study of: 12-06-21 FRAX%s: The graph provided illustrates a 30.9% chance for a major osteoporotic fx and a 10.9% chance for the hips probability for fx in 10 years time. IMPRESSION: Osteoporosis (T Score less than -2.5). There is increased fracture risk and therapy is usually indicated based on age. Re-Screen 1-2 years. NOTE: T-SCORE=SD OF THE YOUNG ADULT MEAN. [facility], , 12/09/2024 1:36 PM
--- NOTE | 2024-12-09 13:49 | US ---
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 Indirect Doppler criteria was utilized. FINDINGS: EXAM MEASUREMENTS: RIGHT: Peak Systolic Velocity (PSV) cm/sec ----- Right CCA: 67.8 ----- Right ICA: 109 ----- Right ECA: 98.7 ICA/CCA ratio: 1.6 RIGHT: End Diastole cm/sec ----- Right CCA: 11.3 ----- Right ICA: 15.6 ----- Right ECA: 12.3 LEFT: Peak Systolic Velocity (PSV) cm/sec ----- Left CCA: 63.0 ----- Left ICA: 95.3 ----- Left ECA: 73.9 ICA/CCA ratio: 1.5 LEFT: End Diastole cm/sec ----- Left CCA: 7.9 ----- Left ICA: 18.4 ----- Left ECA: 4.6 VERTEBRALS (direction of flow): Right Vertebral: Antegrade Left Vertebral: Antegrade Rhythm: Normal TECHNICAL TRAINING INSTRUCTOR NOTES: slightly limited due to vessel tortuosity. No elevated velocities or significant stenosis seen bilaterally. Plaque seen within both bulbs. Color Doppler imaging shows patency with blood flow throughout the carotid artery. Spectral waveforms are within normal limits. IMPRESSION: Prominent atherosclerotic change of the bilateral carotid bifurcations but without any hemodynamicall y significant ICA stenosis on either side. Criteria for Assigning % of Stenosis / Diameter reduction (Estimation based on the indirect measurements of the internal carotid artery velocities (ICA PSV). 1. Normal (no stenosis)=ICA PSV < 180 cm/s: ratio < 2.0: ICA EDV<40 cm/s. 2. Less than 50% stenosis=ICA PSV < 180 cm/s: ratio < 2.0: ICA EDV<40 cm/s. 3. 50 to 69% stenosis=ICA PSV of 180 to 230 cm/s: ration 2.0 ? 4.0: ICA EDV 40-100 cm/s. PSV 125-180 cm/sec and ICA/CCA PSV Ratio ? 2.0 is also consistent with 50-69% stenosis 4. Greater than 70% stenosis to near occlusion= ICA PSV > 230 cm/s: ratio > 4.0: ICA EDV > 100 cm/s. 5. Near occlusion= ICA PSV velocities may be low or undetectable: variable ratio and ICA EDV. 6. Total occlusion=unable to detect flow. [facility], , 12/09/2024 1:47 PM
--- NOTE | 2024-12-10 10:04 | CA ---
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 Cardiac Hx: Technical Quality: Good Contrast 1: Total Dose (mL): Contrast 2: Total Dose (mL): MEASUREMENTS (Male / Female) Normal Values 2D ECHO LV Diastolic Diameter PLAX 4.9 cm 4.2 - 5.9 / 3.9 - 5.3 cm LV Systolic Diameter PLAX 3.9 cm IVS Diastolic Thickness 1.0 cm 0.6 - 1.0 / 0.6 - 0.9 cm LVPW Diastolic Thickness 0.8 cm 0.6 - 1.0 / 0.6 - 0.9 cm LV Relative Wall Thickness 0.4 LVOT Diameter 2.2 cm LV Diastolic Volume MOD BP 78.0 cm??? 67 - 155 / 56 - 104 cm??? LV Systolic Volume MOD BP 25.7 cm??? 22 - 58 / 19 - 49 cm??? LV Ejection Fraction MOD BP 67.1 % >= 55 % LV Cardiac Index MOD BP 1727.6 cm???/min???m??? LV Diastolic Volume MOD 4C 79.8 cm??? LV Systolic Volume MOD 4C 22.1 cm??? LV Ejection Fraction MOD 4C 72.3 % LV Cardiac Index MOD 4C 1906.6 cm???/min???m??? LV Diastolic Length 4C 8.0 cm LV Systolic Length 4C 7.0 cm LV Diastolic Volume MOD 2C 76.1 cm??? LV Systolic Volume MOD 2C 30.8 cm??? LV Ejection Fraction MOD 2C 59.6 % LV Cardiac Index MOD 2C 1496.4 cm???/min???m??? LV Diastolic Length 2C 7.9 cm LV Systolic Length 2C 7.0 cm LA Volume 37.2 cm??? 18 - 58 / 22 - 52 cm??? LA Volume Index 21.9 cm???/m??? 16 - 28 cm???/m??? DOPPLER AV Peak Velocity 116.6 cm/s AV Peak Gradient 5.4 mmHg AV Mean Velocity 82.1 cm/s AV Mean Gradient 2.9 mmHg AV Velocity Time Integral 28.1 cm LVOT Peak Velocity 79.8 cm/s LVOT Peak Gradient 2.5 mmHg LVOT Velocity Time Integral 18.9 cm LVOT Stroke Volume 70.3 cm??? LVOT Stroke Volume Index 41.4 ml/m??? LVOT Cardiac Index 2321.3 cm???/min???m??? AV Area Cont Eq vti 2.5 cm??? AV Area Cont Eq pk 2.5 cm??? MV Area PHT 3.7 cm??? Mitral E Point Velocity 51.9 cm/s Mitral A Point Velocity 71.7 cm/s Mitral E to A Ratio 0.7 MV Deceleration Time 205.0 ms PV Peak Velocity 68.9 cm/s PV Peak Gradient 1.9 mmHg FINDINGS Left Ventricle Left ventricular ejection fraction is estimated at 60 %. Mildly increased septal wall thickness. Left ventricular cavity size normal. No obvious regional wall motion abnormalities. Right Ventricle Normal right ventricular size and function. Unable to estimate the right ventricular systolic pressure. Right Atrium Normal right atrial size. Left Atrium Normal left atrial size. Mitral Valve Structurally normal mitral valve. No evidence for mitral valve prolapse. No mitral stenosis. Trace mitral regurgitation. Aortic Valve Trileaflet aortic valve. No aortic stenosis. Trace to mild aortic regurgitation. Tricuspid Valve Structurally normal tricuspid valve. No tricuspid stenosis. Trace tricuspid regurgitation. Pulmonic Valve Structurally normal pulmonic valve. No pulmonic stenosis. Mild pulmonic regurgitation. Pericardium No pericardial effusion. Aorta Normal size aortic root and proximal ascending aorta. CONCLUSIONS Normal LV size and systolic function. No significant abnormality on the Doppler exam. Right-sided pressures are not well quantified. No pericardial effusion Previewed by: Dr. Geno Betts MD (Electronically Signed) Final Date: 10 Dec 2024 10:03
== END | disposition home or self-care (01) ==
LOC: RADBDWWP 12:41
PROVIDERS: ATTEND Internal Medicine
DX: I65.23 Occlusion and stenosis of bilateral carotid arteries (principal); I34.0 Nonrheumatic mitral (valve) insufficiency; M81.0 Age-related osteoporosis without current pathological fracture
CPT/HCPCS: 77080; 93306; 93880